=== PATIENT | male | born 1950 | race Caucasian/White ===

== ENCOUNTER 2018-12-12 09:49 | Outpatient (REF) | payer MEDICARE, SELFPAY ==
[2018-12-12 19:24] LABS: Anion Gap 8.6 mmol/L (3-11); BUN 22 mg/dL (7-18); CO2 29.4 mmol/L (21.0-32.0); CREATININE 1.01 mg/dL (0.70-1.30); Calcium 9.1 mg/dL (8.5-10.1); Chloride 105 mmol/L (98-107); Cholesterol 133 mg/dL (50-200); Glucose 115 mg/dL (70-100); HDL Cholesterol 35 mg/dL (40-60); LDL CHOLESTEROL 86 mg/dL (<100); Potassium 4.2 mmol/L (3.5-5.1); Sodium 143 mmol/L (136-145); Triglyceride 60 mg/dL (30-150)
== END 2018-12-12 10:09 ==
LOC: NCHCN 09:49
PROVIDERS: PCP Physician Assistant; Visit Provider Physician Assistant Medical
DX: I10 Essential (primary) hypertension (principal); E78.89 Other lipoprotein metabolism disorders
CPT/HCPCS: 80048; 80061; 83721

== ENCOUNTER 2018-12-13 09:43 | Outpatient (REF) | payer MEDICARE, SELFPAY ==
[2018-12-15 10:34] LABS: PSA, Diagnostic 2.4 ng/ml (0-4.5)
== END 2018-12-13 10:03 ==
LOC: NCHCN 09:43
PROVIDERS: PCP Physician Assistant; Visit Provider Physician Assistant Medical
DX: N40.0 Benign prostatic hyperplasia without lower urinary tract symptoms (principal)
CPT/HCPCS: 84153

== ENCOUNTER → 2019-03-07 09:38 | Outpatient (BNVA) | payer MEDICARE, SELFPAY | PROVIDERS: PCP Physician Assistant; Referring Provider Physician Assistant Medical; Visit Provider Urology | DX: N40.1 Benign prostatic hyperplasia with lower urinary tract symptoms (principal); N13.8 Other obstructive and reflux uropathy; I10 Essential (primary) hypertension; R35.1 Nocturia | CPT/HCPCS: 99204 ==

== ENCOUNTER 2020-03-07 11:08 | Outpatient (REF) | payer MEDICARE, SELFPAY ==
[2020-03-07 19:56] LABS: Hemoglobin A1C 5.9 % (3.8-5.6)
[2020-03-07 20:19] LABS: ALT 35 U/L (16-63); AST 21 U/L (15-37); Albumin 3.8 g/dL (3.4-5.0); Alkaline Phosphatase 56 U/L (46-116); Anion Gap 11.7 mmol/L (3-11); BUN 21 mg/dL (7-18); Bilirubin, Total 0.6 mg/dL (0.2-1.0); CO2 23.3 mmol/L (21.0-32.0); CREATININE 0.96 mg/dL (0.70-1.30); Chloride 104 mmol/L (98-107); Glucose 102 mg/dL (74-106); Potassium 4.3 mmol/L (3.5-5.1); Sodium 139 mmol/L (136-145); Total Protein 6.7 g/dL (6.4-8.2)
[2020-03-11 09:22] LABS: PSA, Screening 3.6 ng/mL (0.0-4.5)
== END 2020-03-07 11:28 ==
LOC: NCHCN 11:08
PROVIDERS: PCP Nurse Practitioner Family; Visit Provider Nurse Practitioner Family
DX: R73.9 Hyperglycemia, unspecified (principal); E78.5 Hyperlipidemia, unspecified; I10 Essential (primary) hypertension; N40.0 Benign prostatic hyperplasia without lower urinary tract symptoms; Z12.5 Encounter for screening for malignant neoplasm of prostate
CPT/HCPCS: 80053; 84153; 83036

== ENCOUNTER → 2020-05-17 08:58 | Outpatient (BNVA) | payer MEDICARE, SELFPAY | PROVIDERS: PCP Nurse Practitioner Family; Referring Provider Physician Assistant; Visit Provider Urology | DX: R97.20 Elevated prostate specific antigen [PSA] (principal); N40.1 Benign prostatic hyperplasia with lower urinary tract symptoms; R35.1 Nocturia; I10 Essential (primary) hypertension | CPT/HCPCS: 99213; 99442 ==

== ENCOUNTER → 2020-06-14 09:30 | Outpatient (BNVA) | payer MEDICARE, SELFPAY | PROVIDERS: PCP Nurse Practitioner Family; Referring Provider Nurse Practitioner Family; Visit Provider Urology | DX: N40.1 Benign prostatic hyperplasia with lower urinary tract symptoms (principal); I10 Essential (primary) hypertension | CPT/HCPCS: 99213; 99442 ==

== ENCOUNTER → 2020-12-13 08:15 | Outpatient (BNVA) | payer MEDICARE, SELFPAY | PROVIDERS: PCP Nurse Practitioner Family; Referring Provider Nurse Practitioner Family; Visit Provider Urology | DX: N40.1 Benign prostatic hyperplasia with lower urinary tract symptoms (principal); R39.14 Feeling of incomplete bladder emptying; R97.20 Elevated prostate specific antigen [PSA] | CPT/HCPCS: 99213; 99215 ==

== ENCOUNTER 2020-12-13 17:45 | Outpatient (REF) | payer MEDICARE, SELFPAY | END 2020-12-13 17:46 | disposition home or self-care (01) | LOC: LBN 17:45 | PROVIDERS: PCP Nurse Practitioner Family; Visit Provider Urology | DX: R97.20 Elevated prostate specific antigen [PSA] (principal) | CPT/HCPCS: 84153 ==

== ENCOUNTER → 2021-08-12 10:45 | Outpatient (BNVA) | payer MEDICARE, SELFPAY | PROVIDERS: PCP Nurse Practitioner Family; Referring Provider Nurse Practitioner Family; Visit Provider Nurse Practitioner Gerontology | DX: N40.1 Benign prostatic hyperplasia with lower urinary tract symptoms (principal); R97.20 Elevated prostate specific antigen [PSA]; Z80.42 Family history of malignant neoplasm of prostate | CPT/HCPCS: 81003; 99214 ==

== ENCOUNTER → 2021-11-11 10:22 | Outpatient (BNVA) | payer MEDICARE, SELFPAY | PROVIDERS: PCP Nurse Practitioner Family; Referring Provider Nurse Practitioner Family; Visit Provider Nurse Practitioner Gerontology | DX: R97.20 Elevated prostate specific antigen [PSA] (principal); N40.1 Benign prostatic hyperplasia with lower urinary tract symptoms | CPT/HCPCS: 99214 ==

== ENCOUNTER 2022-01-20 15:31 | Outpatient (REF) | payer MEDICARE, SELFPAY ==
[2022-01-20 20:30] LABS: ALT 31 U/L (16-63); AST 26 U/L (15-37); Albumin 3.9 g/dL (3.4-5.0); Alkaline Phosphatase 61 U/L (46-116); Anion Gap 6.8 mmol/L (3-11); BUN 25 mg/dL (7-18); Bilirubin, Total 0.4 mg/dL (0.2-1.0); CO2 29.2 mmol/L (21.0-32.0); CREATININE 0.9 mg/dL (0.70-1.30); Calcium 9.4 mg/dL (8.5-10.1); Calculated LDL 91 mg/dL (<100); Chloride 107 mmol/L (98-107); Cholesterol 147 mg/dL (<200); Glucose 114 mg/dL (74-106); HDL Cholesterol 47 mg/dL (40-60); Potassium 4.8 mmol/L (3.5-5.1); Sodium 143 mmol/L (136-145); Total Protein 6.9 g/dL (6.4-8.2); Triglyceride 45 mg/dL (<150)
== END 2022-01-20 15:32 | disposition home or self-care (01) ==
LOC: NCHCN 15:31
PROVIDERS: PCP Nurse Practitioner Family; Visit Provider Nurse Practitioner Family
DX: I10 Essential (primary) hypertension (principal); E78.5 Hyperlipidemia, unspecified
CPT/HCPCS: 80053; 80061

== ENCOUNTER → 2022-02-24 10:01 | Outpatient (BNVA) | payer MEDICARE, SELFPAY | PROVIDERS: PCP Nurse Practitioner Family; Referring Provider Nurse Practitioner Family; Visit Provider Nurse Practitioner Gerontology | DX: R39.89 Other symptoms and signs involving the genitourinary system (principal); N40.1 Benign prostatic hyperplasia with lower urinary tract symptoms; R97.20 Elevated prostate specific antigen [PSA] | CPT/HCPCS: 36415; 51798; 99214 ==

== ENCOUNTER 2022-02-24 14:59 | Outpatient (REF) | payer MEDICARE, SELFPAY ==
[2022-02-25 18:23] LABS: PSA, Diagnostic 3.5 ng/mL (<=6.5)
== END 2022-02-24 15:00 | disposition home or self-care (01) ==
LOC: NCHCN 14:59
PROVIDERS: PCP Nurse Practitioner Family; Visit Provider Nurse Practitioner Gerontology
DX: R97.20 Elevated prostate specific antigen [PSA] (principal); N40.1 Benign prostatic hyperplasia with lower urinary tract symptoms
CPT/HCPCS: 84153

== ENCOUNTER → 2022-08-27 09:40 | Outpatient (BNVA) | payer MEDICARE, SELFPAY | PROVIDERS: PCP Nurse Practitioner Family; Referring Provider Nurse Practitioner Family; Visit Provider Nurse Practitioner Gerontology | DX: N40.1 Benign prostatic hyperplasia with lower urinary tract symptoms (principal); R39.89 Other symptoms and signs involving the genitourinary system; R97.20 Elevated prostate specific antigen [PSA] | CPT/HCPCS: 51798; 99214 ==

== ENCOUNTER → 2022-10-14 13:00 | Outpatient (BNVA) | payer MEDICARE, SELFPAY | PROVIDERS: PCP Nurse Practitioner Family; Referring Provider Nurse Practitioner Family; Visit Provider Nurse Practitioner Gerontology | DX: N40.1 Benign prostatic hyperplasia with lower urinary tract symptoms (principal); R39.89 Other symptoms and signs involving the genitourinary system; R97.20 Elevated prostate specific antigen [PSA]; K59.00 Constipation, unspecified | CPT/HCPCS: 51798; 81003; 99213 ==

== ENCOUNTER 2022-12-24 12:11 | Outpatient (REF) | payer MEDICARE, SELFPAY ==
[2022-12-24 19:04] LABS: Bilirubin Negative (Negative); Blood Negative (Negative); Clarity Clear (Clear); Glucose Negative (Negative); Ketones Negative (Negative); Leukocyte Esterase Negative (Negative); Nitrite Negative (Negative); Urobilinogen 0.2 mg/dL (Up to 0.2)
== END 2022-12-24 12:12 | disposition home or self-care (01) ==
LOC: NCHCN 12:11
PROVIDERS: PCP Nurse Practitioner Family; Visit Provider Nurse Practitioner Family
DX: M54.89 Other dorsalgia
CPT/HCPCS: 81003

== ENCOUNTER → 2023-02-10 08:05 | Outpatient (BNVA) | payer MEDICARE, SELFPAY | PROVIDERS: PCP Nurse Practitioner Family; Visit Provider Nurse Practitioner Gerontology | DX: R39.89 Other symptoms and signs involving the genitourinary system (principal); R97.20 Elevated prostate specific antigen [PSA]; N40.1 Benign prostatic hyperplasia with lower urinary tract symptoms | CPT/HCPCS: 36415; 51798; 99213 ==

== ENCOUNTER 2023-02-10 08:49 | Outpatient (REF) | payer MEDICARE, SELFPAY ==
[2023-02-11 11:33] LABS: PSA, Screening 4.8 ng/mL (<=6.5)
== END 2023-02-10 08:50 | disposition home or self-care (01) ==
LOC: LBN 08:49
PROVIDERS: PCP Nurse Practitioner Family; Visit Provider Nurse Practitioner Gerontology
DX: N40.1 Benign prostatic hyperplasia with lower urinary tract symptoms (principal)
CPT/HCPCS: 84153

== ENCOUNTER → 2023-09-08 09:56 | Outpatient (BNVA) | payer MEDICARE, SELFPAY | PROVIDERS: PCP Nurse Practitioner Family; Referring Provider Nurse Practitioner Family; Visit Provider Nurse Practitioner Gerontology | DX: Z80.42 Family history of malignant neoplasm of prostate (principal); N40.1 Benign prostatic hyperplasia with lower urinary tract symptoms; R97.20 Elevated prostate specific antigen [PSA] | CPT/HCPCS: 51798; 99213 ==

== ENCOUNTER 2023-09-08 13:35 | Outpatient (CLI) | payer MEDICARE, SELFPAY ==
[2023-09-08 18:09] LABS: PSA, Diagnostic 5.3 ng/mL (<=6.5)
== END 2023-09-08 13:36 | disposition home or self-care (01) ==
LOC: LBO 13:36
PROVIDERS: PCP Nurse Practitioner Family; Visit Provider Nurse Practitioner Gerontology
DX: R97.20 Elevated prostate specific antigen [PSA] (principal); N40.1 Benign prostatic hyperplasia with lower urinary tract symptoms; Z80.42 Family history of malignant neoplasm of prostate
CPT/HCPCS: 36415; 51798; 99213; 84153

== ENCOUNTER 2023-10-04 11:09 | Outpatient (REF) | payer MEDICARE, SELFPAY ==
[2023-10-04 19:32] LABS: ALT 32 U/L (16-63); AST 19 U/L (15-37); Albumin 3.7 g/dL (3.4-5.0); Alkaline Phosphatase 76 U/L (46-116); Anion Gap 7.5 mmol/L (3-11); BUN 26 mg/dL (7-18); Bilirubin, Total 0.4 mg/dL (0.2-1.0); CO2 26.5 mmol/L (21.0-32.0); Calcium 9.5 mg/dL (8.5-10.1); Chloride 108 mmol/L (98-107); Estimated GFR 79.97 (mL/min/1.73m2); Glucose 118 mg/dL (74-106); Potassium 4.5 mmol/L (3.5-5.1); Sodium 142 mmol/L (136-145); Total Protein 7.1 g/dL (6.4-8.2)
== END 2023-10-04 11:10 | disposition home or self-care (01) ==
LOC: NCHCN 11:09
PROVIDERS: PCP Nurse Practitioner Family; Visit Provider Nurse Practitioner Family
DX: E11.9 Type 2 diabetes mellitus without complications (principal)
CPT/HCPCS: 80053

== ENCOUNTER → 2023-10-26 14:58 | Outpatient (BNVA) | payer MEDICARE, SELFPAY | PROVIDERS: PCP Nurse Practitioner Family; Referring Provider Nurse Practitioner Family; Visit Provider Nurse Practitioner Gerontology | DX: M40.10 Other secondary kyphosis, site unspecified (principal); R97.20 Elevated prostate specific antigen [PSA] | CPT/HCPCS: 99442 ==

== ENCOUNTER → 2023-11-30 08:50 | Outpatient (BNVA) | payer MEDICARE, SELFPAY | PROVIDERS: PCP Nurse Practitioner Family; Referring Provider Nurse Practitioner Family; Visit Provider Urology | DX: C61 Malignant neoplasm of prostate (principal); R97.20 Elevated prostate specific antigen [PSA] | CPT/HCPCS: 55700; 76872 ==

== ENCOUNTER 2023-11-30 09:15 | Outpatient (REF) | payer MEDICARE, SELFPAY ==
--- NOTE | 2023-11-30 09:20 | PROST_PTH ---
PATIENT: Isaiah Reece LOC: [facility] U#:[id number] AGE/SX: 73/M ROOM: RE11/30/[address]: Cristhian Ferraro MD : 1950 BED: DIS: 11/30/2023 SPEC #: [id number] RECD: 11/30/23 13:14 STATUS: MONIQUE RE #: [id number] DILIA: 11/30/23 09:[address]: Cristhian Ferraro DEPT: Surgical Specimen RECD BY: Cary Molina ENTERED: 11/30/23 13:15 SP TYPE: PROST OTHR DR: Jr Mora Tissues: 1 - PROSTATE NEEDLE BIOPSY 2 - PROSTATE NEEDLE BIOPSY 3 - PROSTATE NEEDLE BIOPSY 4 - PROSTATE NEEDLE BIOPSY 5 - PROSTATE NEEDLE BIOPSY 6 - PROSTATE NEEDLE BIOPSY 7 - PROSTATE NEEDLE BIOPSY 8 - PROSTATE NEEDLE BIOPSY 9 - PROSTATE NEEDLE BIOPSY 10 - PROSTATE NEEDLE BIOPSY 11 - PROSTATE NEEDLE BIOPSY 12 - PROSTATE NEEDLE BIOPSY Procedures: GROSS AND MICRO LEVEL 4 Comments: [id number]
== END 2023-11-30 09:16 | disposition home or self-care (01) ==
LOC: LBN 09:15
PROVIDERS: PCP Nurse Practitioner Family; Visit Provider Urology
DX: C61 Malignant neoplasm of prostate
CPT/HCPCS: 88305

== ENCOUNTER → 2023-12-06 11:57 | Outpatient (BNVA) | payer MEDICARE, SELFPAY | PROVIDERS: PCP Nurse Practitioner Family; Referring Provider Nurse Practitioner Family; Visit Provider Urology | DX: C61 Malignant neoplasm of prostate (principal); R30.0 Dysuria | CPT/HCPCS: 81002; 99213 ==

== ENCOUNTER → 2023-12-21 14:39 | Outpatient (BNVA) | payer MEDICARE, SELFPAY | PROVIDERS: PCP Nurse Practitioner Family; Referring Provider Nurse Practitioner Family; Visit Provider Urology | DX: C61 Malignant neoplasm of prostate (principal) | CPT/HCPCS: 99213 ==

== ENCOUNTER 2024-03-08 15:55 | Outpatient (CLI) | payer MEDICARE, SELFPAY ==
[2024-03-08 22:23] LABS: PSA, Diagnostic 5.1 ng/mL (<=6.5)
== END 2024-03-08 15:56 | disposition home or self-care (01) ==
LOC: LBO 15:55
PROVIDERS: PCP Nurse Practitioner Family; Visit Provider Urology
DX: C61 Malignant neoplasm of prostate (principal)
CPT/HCPCS: 36415; 84153

== ENCOUNTER 2024-05-03 16:15 | Outpatient (REF) | payer MEDICARE, SELFPAY ==
[2024-05-03 19:41] LABS: HCT 44.8 % (40.0-50.0); HGB 14.6 g/dL (13.5-17.5); MCH 30.1 pg (27.0-33.0); MCHC 32.6 % (32.0-36.0); MCV 92 fL (80-95); MPV 9.8 fL (8.0-11.0); Platelet Count 225 10^3/uL (130-400); RBC 4.85 10^6/uL (4.36-5.78); RDW 12.7 % (11.8-14.1); RDW-SD 42.6 fL
[2024-05-03 19:55] LABS: ALT 36 U/L (16-63); AST 25 U/L (15-37); Albumin 3.6 g/dL (3.4-5.0); Alkaline Phosphatase 67 U/L (46-116); Anion Gap 6.7 mmol/L (3-11); BUN 21 mg/dL (7-18); Bilirubin, Total 0.46 mg/dL (0.2-1.0); CO2 26.3 mmol/L (21.0-32.0); Calcium 8.7 mg/dL (8.5-10.1); Chloride 107 mmol/L (98-107); Estimated GFR 79.47 (mL/min/1.73m2); Glucose 113 mg/dL (74-106); Sodium 140 mmol/L (136-145); Total Protein 6.8 g/dL (6.4-8.2)
== END 2024-05-03 16:16 | disposition home or self-care (01) ==
LOC: NCHCN 16:15
PROVIDERS: PCP Nurse Practitioner Family; Visit Provider Nurse Practitioner Family
DX: E11.9 Type 2 diabetes mellitus without complications (principal)
CPT/HCPCS: 80053; 85027

== ENCOUNTER → 2024-10-30 13:43 | Outpatient (BNVA) | payer MEDICARE, SELFPAY | PROVIDERS: PCP Nurse Practitioner Family; Referring Provider Nurse Practitioner Family; Visit Provider Nurse Practitioner Gerontology | DX: N40.1 Benign prostatic hyperplasia with lower urinary tract symptoms (principal); R97.20 Elevated prostate specific antigen [PSA]; C61 Malignant neoplasm of prostate; Z80.42 Family history of malignant neoplasm of prostate | CPT/HCPCS: 99213 ==

== ENCOUNTER 2024-10-30 14:32 | Outpatient (CLI) | payer MEDICARE, SELFPAY ==
[2024-11-01 15:36] LABS: PSA, Ultrasensitive 7.6 ng/mL (<= 6.5)
== END 2024-10-30 14:33 | disposition home or self-care (01) ==
LOC: LBO 14:33
PROVIDERS: PCP Nurse Practitioner Family; Visit Provider Nurse Practitioner Gerontology
DX: C61 Malignant neoplasm of prostate (principal); R97.20 Elevated prostate specific antigen [PSA]; N40.1 Benign prostatic hyperplasia with lower urinary tract symptoms
CPT/HCPCS: 36415; 84153; 99213

== ENCOUNTER → 2025-05-07 14:13 | Outpatient (BNVA) | payer MEDICARE, SELFPAY | PROVIDERS: PCP Nurse Practitioner Family; Referring Provider Nurse Practitioner Family; Visit Provider Nurse Practitioner Gerontology | DX: N40.1 Benign prostatic hyperplasia with lower urinary tract symptoms (principal); C61 Malignant neoplasm of prostate; Z80.42 Family history of malignant neoplasm of prostate; R39.9 Unspecified symptoms and signs involving the genitourinary system; R97.20 Elevated prostate specific antigen [PSA] | CPT/HCPCS: 99213; 51798 ==

== ENCOUNTER 2025-07-09 11:54 | Outpatient (REF) | payer MEDICARE, SELFPAY ==
[2025-07-09 19:52] LABS: HCT 45.6 % (40.0-50.0); HGB 14.5 g/dL (13.5-17.5); MCH 28.9 pg (27.0-33.0); MCHC 31.8 % (32.0-36.0); MCV 91 fL (80-95); MPV 10.1 fL (8.0-11.0); Platelet Count 231 10^3/uL (130-400); RBC 5.02 10^6/uL (4.36-5.78); RDW 12.3 % (11.8-14.1); RDW-SD 40.3 fL; WBC 5.72 10^3/uL (4.4-10.8)
[2025-07-09 20:03] LABS: TSH (W/Ref FT4) 1.83 uIU/mL (0.55-4.78)
[2025-07-09 20:06] LABS: ALT 26 U/L (10-49); AST 25 U/L (<34); Albumin 4.2 g/dL (3.2-5.0); Alkaline Phosphatase 63 U/L (46-116); Anion Gap 7.7 mmol/L (3-11); BUN 20 mg/dL (9-23); Bilirubin, Total 0.60 mg/dL (0.2-1.2); CO2 28.3 mmol/L (20.0-31.0); Calcium 9.4 mg/dL (8.3-10.6); Chloride 109 mmol/L (98-107); Glucose 128 mg/dL (74-106); Potassium 4.6 mmol/L (3.5-5.1); Sodium 145 mmol/L (136-145); Total Protein 7.0 g/dL (5.7-8.2)
[2025-07-09 20:27] LABS: Hemoglobin A1C 6.0 % (<5.7)
== END 2025-07-09 11:55 | disposition home or self-care (01) ==
LOC: NCHCN 11:54
PROVIDERS: PCP Nurse Practitioner Family; Visit Provider Nurse Practitioner Family
DX: R53.82 Chronic fatigue, unspecified (principal)
CPT/HCPCS: 80053; 85027; 83036; 84443